=== PATIENT | female | born 1975 | race Caucasian/White ===

== ENCOUNTER 2021-12-29 07:52 | Emergency (ER) | payer BC, SELFPAY ==
[2021-12-29 07:53] VITALS: BP 138/91; PULSE 73; RESP 16; TEMP 36.8; O2SAT 100; BMI 28.1
--- NOTE | 2021-12-29 07:58 | EX.ED.DYSGE1 ---
HPI History of Present Illness Chief Complaint: Weakness Detail of Chief Complaint: Left-sided neck pain and lightheadedness Informant: patient and EMS Onset/Context/Timing Onset: Hours (Onset Monday) Context: Onset with activity Timing: Continuous Quality: Pain Location: Left paracervical and left trapezius area radiating to the occiput Current Severity: Mild Maximum Severity: Moderate Worsened by: After coworker massaged her neck Relieved by: Nothing Associated Symptoms Associated Symptoms: Lightheadedness Narrative Narrative: Patient is a 46-year-old woman who is a non-smoker none drinker who presents with left-sided neck and trapezius pain that started Monday. She does not recall doing anything this past weekend at november have caused injury or strain of muscles. She denies radicular pain. She denies paresthesia, anesthesia medics. She does report the pain going up to her occiput. She took aspirin this morning with no benefit. She states the pain got worse after coworker massaged her neck. She was also massage her neck when the pain became worse and she was lightheaded. Prior similar symptoms: No Recent Illness/Hospitalization: No PFSH PFSH Medical History no medical history no medical history Home Medications naproxen 500 mg PO BID #14 tab 12/29/21 [Rx Last Taken Unknown] Allergy/AdvReac Type Severity Reaction Status Date / Time No Known Allergies Allergy Verified 12/07/15 05:41 Surgical History (Updated 12/29/21 @ 07:59 by Queta Mariano) Hx of carpal tunnel repair Hx of section Social History (Updated 12/29/21 @ 08:[address] Lamonte Acosta MD) household members: other Smoking Status: Never smoker alcohol intake: never substance use type: does not use ROS ROS ED Constitutional Constitutional ED: Denies chills, fever(s), subjective, sweats or weight loss Eyes Eyes: Denies blurry vision, change in vision or diplopia ENT ENT ED: Denies ear pain, rhinorrhea or sore throat Cardiovascular Cardiovascular: Denies chest pain or palpitations Respiratory/Chest Respiratory/Chest: Denies cough or dyspnea Musculoskeletal Musculoskeletal: Reports neck pain; Denies arthralgias, back pain or myalgias Neurologic Neurologic: Reports headache(s); Denies paresthesias or weakness EXAM Physical Exam Const Positive well nourished and well developed General Appearance ED: well developed and NAD; Negative for pallor HEENT Reports moist mucous membranes HEENT Narrative: Ears normal. Nares patent. Negative for trauma or tenderness Eyes PERRL and EOMs intact bilaterally General Eye ED: Negative for pale conjunctiva or scleral icterus Neck no lymphadenopathy, supple and no JVD Neck Narrative: Patient has discomfort with pushing her head to the left and rotation to the left. There is reproducible pain over the left paracervical and trapezius area. General: Negative for tenderness Resp normal respiratory effort Cardio regular rate and regular rhythm Extremity normal to inspection General Extremety ED: Negative for edema or tenderness General Extremity: Negative for edema Neuro oriented x3, CN's II-XII intact bilaterally and no sensory deficits noted Neuro Narrative: Axillary, median, radial and ulnar function intact. Bicep, brachialis and tricep reflex are 1+. Sensorium / Orientation: alert Motor Exam: strength 5/5 throughout Skin no rashes or lesions noted, no wounds and skin turgor normal General Skin Exam: Negative for jaundice or pallor MDM MDM MDM Narrative Medical decision making narrative: Based on patient's history and physical the discomfort she is experiencing is musculoskeletal. The lightheadedness occurred with pain and most likely represents a near vasovagal vagal event. Patient was informed treatment is ice anti-inflammatories and she has no contraindication. Since there is no history of trauma and no constitutional symptoms imaging and laboratory works were not obtained nor other indicated. Discharge Plan Triage Chief Complaint: Weakness ED Provider: Lamonte Acosta Dx/Rx/DC Orders Clinical Impression: Neck muscle strain, Vasovagal near syncope Instructions: ED Neck Sprain or Strain, ED Near-Fainting- Vagal Reaction Prescriptions: New naproxen 500 MG tablet 500 mg PO BID Qty: 14 RF: 0 Primary Care Provider: Joseph Waldrop Referrals: Jsoeph Waldrop, DO [Primary Care Provider] - 3-5 Days if not improving Activity Restrictions/Additional Instructions: Apply ice 6-8 times per day for the next 3 to 5 days to the left side of your neck and shoulder Avoid activity that increases your pain Disposition Disposition: Home, Self Care
[2021-12-29] MEDS: Naproxen 250 MG Tablet 500 MG PO (08:14)
[2021-12-29 08:18] VITALS: BP 116/71; PULSE 67; RESP 16; O2SAT 99
== END 2021-12-29 08:19 | disposition home or self-care (01) ==
PROVIDERS: Emergency Provider Emergency Medicine; PCP Family Medicine; Visit Provider Emergency Medicine
DX: S16.1XXA Strain of muscle, fascia and tendon at neck level, initial encounter (principal); R55 Syncope and collapse; X58.XXXA Exposure to other specified factors, initial encounter
CPT/HCPCS: 99284